=== PATIENT | female | born 1995 | race Caucasian/White ===

== ENCOUNTER 2021-06-13 15:22 | Emergency (ER) | payer OTHER ==
[2021-06-13 15:34] VITALS: BP 166/85; PULSE 76; RESP 16; TEMP 98.2
--- NOTE | 2021-06-13 16:48 | ED ---
General Adult HPI - General Chief complaint: Needlestick/Exposure Stated complaint: [facility]-Needlestick Time Seen by Provider: 06/13/21 16:03 Source: patient Mode of arrival: ambulatory Limitations: no limitations - History of Present Illness Initial comments: This 26-year-old male presents emergency Department for a needle stick injury. Patient states she works at [employer] and was screening a donor when she got stuck in the second finger of her left hand with the needle. Patient states this happened around 1:00 PM. Patient states she is unaware if the donor has HIV, hepatitis, AIDS or any other diseases. Patient denies having any past medical history and states she is overall healthy. Patient states her primary care provider is Shadi Prado. She states she is here to get blood work performed. Patient denies any chest pain, shortness of breath, abdominal pain, nausea, vomiting, change in bowel or bladder, headache, lightheadedness, dizziness, change in vision or any other symptoms. - Related Data Allergies Allergy/AdvReac Type Severity Reaction Status Date / Time No Known Allergies Allergy Verified 06/13/21 15:34 Review of Systems ROS Statement: Those systems with pertinent positive or pertinent negative responses have been documented in the HPI. ROS Other: All systems not noted in ROS Statement are negative. Past Medical History Past Medical History: No Reported History History of Any Multi-Drug Resistant Organisms: None Reported Past Surgical History: No Surgical Hx Reported Past Psychological History: No Psychological Hx Reported Smoking Status: Never smoker Past Alcohol Use History: None Reported Past Drug Use History: None Reported General Exam Limitations: no limitations General appearance: alert, in no apparent distress, obese Head exam: Present: atraumatic, normocephalic, normal inspection Eye exam: Present: normal appearance, PERRL, EOMI. Absent: scleral icterus, conjunctival injection, periorbital swelling ENT exam: Present: normal exam, mucous membranes moist Respiratory exam: Present: normal lung sounds bilaterally. Absent: respiratory distress, wheezes, rales, rhonchi, stridor Cardiovascular Exam: Present: regular rate, normal rhythm, normal heart sounds. Absent: systolic murmur, diastolic murmur, rubs, gallop, clicks GI/Abdominal exam: Present: soft, normal bowel sounds. Absent: distended, tenderness, guarding, rebound, rigid Extremities exam: Present: normal inspection, full ROM, normal capillary refill. Absent: tenderness, pedal edema, joint swelling, calf tenderness Back exam: Present: normal inspection, full ROM Neurological exam: Present: alert, oriented X3, CN II-XII intact Psychiatric exam: Present: normal affect, normal mood Skin exam: Present: warm, dry, intact, normal color. Absent: rash Course Vital Signs 06/13/21 15:31 Temperature 98.2 F Pulse Rate 76 Respiratory 16 Rate Blood Pressure 166/85 O2 Sat by Pulse 98 Oximetry Medical Decision Making - Medical Decision Making This 26-year-old female presents emergency Department after needle stick injury while at work. Labs were drawn per needle stick protocol. Patient instructed to follow up with her primary care provider next 1-2 days. Patient did not want to be prophylactically treated for HIV at this time. Patient sent home in stable condition. Strict return precautions were discussed. Patient verbally agree to plan. Patient sent home in stable condition. Case discussed with my attending, Dr. Randall. Disposition Clinical Impression: Needle stick injury of finger of left hand Disposition: HOME SELF-CARE Condition: Stable Instructions (If sedation given, give patient instructions): Needle Stick Injuries (ED) Additional Instructions: Please follow-up with your primary care provider in the next 1-2 days, as discussed in the ER. Return to the emergency department with any new, worsening or concerning symptoms. Is patient prescribed a controlled substance at d/c from ED?: No Referrals: Nonstaff,Physician [REFERRING] - 1-2 days Decision Time: 16:49
== END 2021-06-13 17:09 | disposition home or self-care (01) ==
LOC: EC 15:22
DX: S61.231A Puncture wound without foreign body of left index finger without damage to nail, initial encounter (principal); E66.9 Obesity, unspecified; Z68.43 Body mass index [BMI] 50.0-59.9, adult; W26.8XXA Contact with other sharp object(s), not elsewhere classified, initial encounter
CPT/HCPCS: 99283